=== PATIENT | male | born 1945 | race Caucasian/White ===

== ENCOUNTER 2016-11-05 16:44 | Inpatient (IN) | payer MEDICARE, OTHER ==
[~2016-11-05] VITALS: Ht 180.3 cm; Wt 77.0 kg
[2016-11-05] MEDS ORDERED: IPRATROPIUM (NEB) 0.5 MG/2.5 ML AMP NEB STA (16:46)
[2016-11-05] MEDS ORDERED: ALBUTEROL 0.083% (NEB) 2.5 MG/3 ML AMP NEB STA (16:46)
[2016-11-05] MEDS ORDERED: METHYLPREDNISOLONE 125 MG INJ IV STA (16:46)
[2016-11-05] MEDS ORDERED: AZITHROMYCIN 500MG/NS (PMX) 250 ML IVPB ONE (17:00)
[2016-11-05 17:26] LABS: BASOPHIL # 0.1 10^3/ul (0.0-0.1); BASOPHILS % 0.7 % (0.0-2.0); EOSINOPHILS # 0.2 10^3/ul (0.0-0.5); HEMATOCRIT 41.5 % (42.0-52.0); HEMOGLOBIN 13.2 g/dl (14.0-18.0); LYMPHOCYTES # 1.6 10^3/ul (0.8-2.9); LYMPHOCYTES % 21.9 % (15.0-51.0); MEAN CORPUSCULAR HEMOGLOBIN 29.6 pg (29.0-33.0); MEAN CORPUSCULAR HGB CONC 31.8 g/dl (32.0-37.0); MEAN PLATELET VOLUME 11.7 fl (7.4-10.4); MONOCYTE # 0.5 10^3/ul (0.3-0.9); MONOCYTES % 7.1 % (0.0-11.0); NEUTROPHIL # 5.1 10^3/ul (1.6-7.5); NEUTROPHILS % 67.9 % (39.0-77.0); PLATELET COUNT 161 10^3/UL (140-415); RED BLOOD COUNT 4.46 10^6/ul (4.70-6.10); RED CELL DISTRIBUTION WIDTH 12.9 % (11.5-14.5); WHITE BLOOD COUNT 7.4 10^3/ul (4.8-10.8)
--- NOTE | 2016-11-05 17:48 | RADRPT ---
PROCEDURE: Chest x-ray CLINICAL INDICATION: Asthma exacerbation TECHNIQUE: Chest single view COMPARISON: None FINDINGS: The heart is normal in size. The pulmonary vessels are normal in caliber. There is extensive hyper lucency in the right upper lung likely representing extensive bullous formation. Moderate biapical pleural and parenchymal scarring is seen. No acute infiltrates are identified. Costophrenic angles are sharp. The bony thorax is unremarkable. IMPRESSION: 1. Hyperlucency in the right upper lung likely reflecting large bullae/blebs.. 2. Bilateral apical pleural and parenchymal scarring and fibrosis. 3. No acute infiltrates or CHF RPTAT: HH .Donnie Jones MD, MD Date Time Electronically viewed and signed by .Donnie Jones MD, on 11/05/2016 17:47 .W/
[2016-11-05 17:52] LABS: ANION GAP 12 (8-16); BLOOD UREA NITROGEN 20 mg/dl (7-20); CALCIUM 9.2 mg/dl (8.4-10.2); CARBON DIOXIDE 32 mmol/L (21-31); CHLORIDE 101 mmol/L (97-110); CREATININE 0.74 mg/dl (0.61-1.24); GLUCOSE 118 mg/dl (70-220); POTASSIUM 3.7 mmol/L (3.5-5.1); SODIUM 141 mmol/L (135-144)
[2016-11-05 18:07] LABS: TROPONIN-I < 0.012 ng/ml (0.00-0.12)
--- NOTE | 2016-11-05 18:23 | ERA ---
ER Documentation Chief Complaint Date/Time DATE: 11/05/16 TIME: 18:20 Chief Complaint SOB H/O COPD HPI Patient is a 71-year-old male with COPD and hypertension who presents with shortness of breath. This shortness of breath started this morning and has worsened as the day has gone on. He is out of albuterol at home. He was 88% when picked up by paramedics. He was brought in by ambulance and was given albuterol. He denies fevers. He denies cough. Upon review of old medical records this is the patient's fourth visit to the ER since 2014. He says that his primary doctor is a Dr. Velásquez. ROS All systems reviewed and are negative except as per history of present illness. Medications Home Meds Unable to Obtain Active Prescriptions or Reported Meds Allergies Allergies: Coded Allergies: No Known Allergy (Unverified , 11/05/16) PMhx/Soc History of Surgery: No Anesthesia Reaction: No Hx Neurological Disorder: No Hx Respiratory Disorders: Yes (Asthma;COPD) Hx Cardiac Disorders: Yes (HTN) Hx Psychiatric Problems: No Hx Miscellaneous Medical Probl: Yes (Deviated Nasal Septum;Victor Manuel Ears HAVASUPAI; Chronic Indwelling Cath Usage) Hx Alcohol Use: No Hx Substance Use: No Hx Tobacco Use: Yes Smoking Status: Current every day smoker FmHx Family History: No diabetes Physical Exam Vitals Vital Signs Date Time Temp Pulse Resp B/P Pulse Ox O2 Delivery O2 Flow Rate FiO2 11/05/16 17:19 0 11/05/16 17:09 76 18 96 21 11/05/16 16:52 98.5 73 22 125/73 95 Physical Exam Const: Moderate distress secondary to shortness of breath Head: Atraumatic Eyes: Normal Conjunctiva ENT: Normal External Ears, Nose and Mouth. Neck: Full range of motion..~ No meningismus. Resp: Diffuse expiratory wheezing Cardio: Regular rate and rhythm, no murmurs Abd: Soft, non tender, non distended. Normal bowel sounds Skin: No petechiae or rashes Back: No midline or flank tenderness Ext: No cyanosis, or edema Neur: Awake and alert Psych: Normal Mood and Affect Result Diagram: 11/05/16 1715 11/05/16 1715 Results 24 hrs Laboratory Tests Test 11/05/16 17:15 White Blood Count 7.410^3/ul Red Blood Count 4.4610^6/ul Hemoglobin 13.2g/dl Hematocrit 41.5% Mean Corpuscular Volume 93.0fl Mean Corpuscular Hemoglobin 29.6pg Mean Corpuscular Hemoglobin Concent 31.8g/dl Red Cell Distribution Width 12.9% Platelet Count 41863^3/UL Mean Platelet Volume 11.7fl Neutrophils % 67.9% Lymphocytes % 21.9% Monocytes % 7.1% Eosinophils % 2.0% Basophils % 0.7% Nucleated Red Blood Cells % 0.0/100WBC Neutrophils # 5.110^3/ul Lymphocytes # 1.610^3/ul Monocytes # 0.510^3/ul Eosinophils # 0.210^3/ul Basophils # 0.110^3/ul Nucleated Red Blood Cells # 0.010^3/ul Sodium Level 141mmol/L Potassium Level 3.7mmol/L Chloride Level 101mmol/L Carbon Dioxide Level 32mmol/L Anion Gap 12 Blood Urea Nitrogen 20mg/dl Creatinine 0.74mg/dl Glucose Level 118mg/dl Calcium Level 9.2mg/dl Troponin I < 0.012ng/ml Current Medications Medications (Trade) Dose Ordered Sig/Carmelo Route PRN Reason Start Time Stop Time Status Last Admin Dose Admin Albuterol (Proventil 0.083% (Neb)) 5 mg ONCE STAT NEB 11/05/16 16:46 11/05/16 16:48 DC 11/05/16 17:07 Ipratropium [place] (Atrovent 0.02% (Neb)) 0.5 mg ONCE STAT NEB 11/05/16 16:46 11/05/16 16:48 DC 11/05/16 17:07 Methylprednisolone Sodium Succinate 125 mg 125 mg ONCE STAT IV 11/05/16 16:46 11/05/16 16:48 DC 11/05/16 17:04 Azithromycin (Zithromax 500mg/ NS (Pmx)) 250 ml @ 250 mls/hr ONCE ONCE IVPB 11/05/16 17:00 11/05/16 17:59 DC 11/05/16 17:04 Ondansetron HCl (Zofran Inj) 4 mg BRIDGE ORDER PRN IV NAUSEA AND/OR VOMITING 11/05/16 18:30 11/06/16 18:29 Acetaminophen (Tylenol Tab) 650 mg ER BRIDGE PRN PO MILD PAIN/FEVER 11/05/16 18:30 11/06/16 18:29 Procedures/MDM PROCEDURE: Chest x-ray CLINICAL INDICATION: Asthma exacerbation TECHNIQUE: Chest single view COMPARISON: None FINDINGS: The heart is normal in size. The pulmonary vessels are normal in caliber. There is extensive hyperlucency in the right upper lung likely representing extensive bullous formation. Moderate biapical pleural and parenchymal scarring is seen. No acute infiltrates are identified. Costophrenic angles are sharp. The bony thorax is unremarkable. IMPRESSION: 1. Hyperlucency in the right upper lung likely reflecting large bullae/blebs.. 2. Bilateral apical pleural and parenchymal scarring and fibrosis. 3. No acute infiltrates or CHF RPTAT: HH .Donnie Jones MD, MD Date Time Electronically viewed and signed by .Donnie Jones MD, MD on 11/05/2016 17:47 EKG read by me: Rate/Rhythm: Regular rate and rhythm at a normal rate Intervals: Normal Impression: No evidence of ischemia or arrhythmia Smoking Cessation Therapy: Pt. was lectured for greater than 3 minutes on the health risks of continued smoking and the benefits of cessation. Patient is a 71-year-old male with COPD who presents with acute COPD with hypoxia. He was 88% on room air at home and does not wear home oxygen. He has run out of albuterol. The patient will need admission given his age and comorbidities. He is continuing to smoke. The patient was given albuterol, Atrovent, Solu-Medrol, and Zithromax empirically. There is no pneumonia or pneumothorax. I doubt pulmonary embolism. I spoke with Dr. Finn from the panel team for admission as the patient has never been admitted before and his primary doctor does not have admitting privileges. Departure Diagnosis: Primary Impression: COPD exacerbation Additional Impressions: Shortness of breath Anemia Qualified Code: D64.9 - Anemia, unspecified type Condition: SLADE Sommers MD Nov 05, 2016 18:23
[2016-11-05] MEDS ORDERED: NACL 0.9% 3 ML SYG IV SCH (18:30)
[2016-11-05] MEDS ORDERED: HYDROCODONE/APAP (5/325) TAB PO PRN (18:30)
[2016-11-05] MEDS ORDERED: ONDANSETRON 4 MG INJ IV PRN (18:30)
[2016-11-05] MEDS ORDERED: NICOTINE POLACRILEX 2 MG GUM BU PRN (18:30)
[2016-11-05] MEDS ORDERED: DOCUSATE SODIUM 100 MG CAP PO PRN (18:30)
[2016-11-05] MEDS ORDERED: ACETAMINOPHEN 325 MG TAB PO PRN ×2 (18:30)
--- NOTE | 2016-11-05 18:34 | HP ---
Date/Time of Note Date/Time of Note DATE: 11/05/16 TIME: 18:31 Assessment/Plan VTE Prophylaxis VTE Prophylaxis Intervention: SCD's Lines/Catheters IV Catheter Type (from Nrs): Saline Lock Assessment/Plan Assessment/Plan 71 yo M with tobacco abuse here with SOB, suspect acute on chronic obstructive pulmonary disease, possibly from viral etio. Cannot r/o PE. PLAN start COPD exacerbation treatment with steroid burst, scheduled duonebs, ZPack viral swab and sputum culture if not improved in 1-2 days consider PE eval NRT rx'ed DVT prophx general diet HPI/ROS Admit Date/Time Admit Date/Time Hx of Present Illness 71 yo M with possible h/o COPD presents with 2 days of SOB and cough productive of white phlegm. No fevers or chest pain. Active tobacco use. PMH/Family/Social Social History Smoking Status: Current every day smoker Exam/Review of Systems Vital Signs Vitals Vital Signs Date Time Temp Pulse Resp B/P Pulse Ox O2 Delivery O2 Flow Rate FiO2 11/05/16 17:19 0 11/05/16 17:09 76 18 96 21 11/05/16 16:52 98.5 125/73 Exam Exam nad, sitting up in bed EOMI MMM edentulous poor air movement, no wheezing or crackles no mrg lungs clear no rashes Labs Result Diagram: 11/05/16 1715 11/05/16 1715 Procedures Procedures CXR no infiltrate, +bleb SATNAM GAMA MD Nov 05, 2016 18:34
[2016-11-05] MEDS ORDERED: NACL 3% FOR INHALATION 15 ML NEBU NEB ONE (20:00)
[2016-11-05] MEDS: ALBUTEROL/IPRATROPIUM (NEB) 3 ML AMP NEB SCH (21:30)
[2016-11-06] MEDS: ALBUTEROL/IPRATROPIUM (NEB) 3 ML AMP NEB SCH ×6 (03:30→21:53)
[2016-11-06 03:40] VITALS: TEMP 97.8
[2016-11-06] MEDS ORDERED: NICOTINE POLACRILEX 2 MG GUM BU PRN (08:30)
[2016-11-06] MEDS: predniSONE 20 MG TAB PO SCH (09:21)
[2016-11-06] MEDS: AZITHROMYCIN 250 MG TAB PO SCH (09:23)
[2016-11-06] MEDS: ENOXAPARIN 40 MG/0.4 ML SYG SC SCH (09:23)
[2016-11-06 12:21] LABS: ADD UMIC YES; UR ASCORBIC ACID NEGATIVE (NEGATIVE); UR BILIRUBIN (Dip) NEGATIVE (NEGATIVE); UR BLOOD (Dip) NEGATIVE (NEGATIVE); UR CLARITY CLOUDY (CLEAR); UR COLOR YELLOW (YELLOW); UR GLUCOSE (Dip) 3+ mg/dL (NEGATIVE); UR KETONES (Dip) NEGATIVE (NEGATIVE); UR LEUKOCYTE ESTERASE (Dip) 2+ Leu/ul (NEGATIVE); UR MUCUS FEW /HPF (NONE SEEN); UR NITRITE (Dip) POSITIVE (NEGATIVE); UR RBC 9 /HPF (0-5); UR SPECIFIC GRAVITY (Dip) 1.024 (1.003-1.030); UR TOTAL PROTEIN (Dip) 1+ mg/dl (NEGATIVE); UR UROBILINOGEN (Dip) NEGATIVE (NEGATIVE); UR WBC CLUMPS MANY /HPF (NONE SEEN)
[2016-11-06 12:27] LABS: UR BACTERIA MANY /HPF (NONE SEEN); UR BUDDING YEAST RARE /HPF (NONE SEEN)
[2016-11-06 15:10] VITALS: PULSE 72
[2016-11-06 16:59] VITALS: Ht 180.3 cm; Wt 77.0 kg
[2016-11-06 18:59] VITALS: BP 108/58; RESP 18
[2016-11-06 21:59] VITALS: BP 122/58; RESP 18
[2016-11-07] MEDS: ALBUTEROL/IPRATROPIUM (NEB) 3 ML AMP NEB SCH ×4 (01:20→13:22)
[2016-11-07 08:13] VITALS: BP 96/54; RESP 16
[2016-11-07] MEDS: predniSONE 20 MG TAB PO SCH (09:34)
[2016-11-07] MEDS: AZITHROMYCIN 250 MG TAB PO SCH (09:34)
[2016-11-07] MEDS: ENOXAPARIN 40 MG/0.4 ML SYG SC SCH (09:34)
[2016-11-07] MEDS ORDERED: [UNRECOGNIZED DRUG - CODE] BU (11:11)
[2016-11-07] MEDS ORDERED: AZIT250T6 PO (11:11)
[2016-11-07] MEDS ORDERED: PRED20TA PO (11:11)
[2016-11-07] MEDS ORDERED: IPRA4AER INHALATION (11:11)
--- NOTE | 2016-11-07 11:14 | PDOCDIS ---
Discharge Instructions DIAGNOSIS Discharge Diagnosis shortness of breath CONDITION Patient Condition: Good HOME CARE INSTRUCTIONS: Special Diet: Regular ACTIVITY: Activity Restrictions: Slowly Increase Activity FOLLOW UP/APPOINTMENTS Follow-up Plan Follow up with your regular doctor this week regarding your breathing. You should be referred for formal breathing tests/pulmonary function testing to see if you need to be on breathing medicine daily for your likely emphysema/COPD/ chronic obstructive pulmonary disease. STOP SMOKING SATNAM GAMA MD Nov 07, 2016 11:14
--- NOTE | 2016-11-07 11:17 | DS ---
Date/Time of Note Date/Time of Note DATE: 11/07/16 TIME: 11:15 Discharge Summary Admission/Discharge Info Admit Date/Time Nov 05, 2016 at 18:04 Discharge Date/Time Discharge Diagnosis shortness of breath Patient Condition: Good Procedures CXR 6.: +blebs, no infiltrate Hx of Present Illness 71 yo M with possible h/o COPD presents with 2 days of SOB and cough productive of white phlegm. No fevers or chest pain. Active tobacco use. Hospital Course Pt started on Zpack, prednisone burst, Duonebs. Breathing retuned to baseline within 48 hours and pt did not require supplemental O2 at time of discharge. Pt advised to f/u with PCP for outpatient PFTs and COPD optimization Home Meds Active Scripts Albuterol/Ipratropium* (Combivent Respimat*) 20-100 Mcg/Inh - 4 Gm Aer.w.adap, 1 PUFF INHALATION QID for WHEEZING, #1 INHALER Prov:SATNAM GAMA MD 11/07/16 Prednisone* (Prednisone*) 20 Mg Tab, 40 MG PO DAILY for 3 Days, #3 TAB Prov:SATNAM GAMA MD 11/07/16 Nicotine Polacrilex (Nicorette) 2 Mg Gum, 2 MG BU Q2H Y for NICOTINE WITHDRAWAL for 7 Days, #28 Prov:SATNAM GAMA MD 11/07/16 Azithromycin* (Azithromycin*) 250 Mg Tablet, 250 MG PO DAILY for 3 Days, #3 TAB Prov:SATNAM GAMA MD 11/07/16 Follow-up Plan PCP within 7 days for further eval and PFT referral Primary Care Provider Not On Staff Doctor SATNAM GAMA MD Nov 07, 2016 11:16
== END 2016-11-07 15:03 | disposition home or self-care (01) | DRG 192 ==
LOC: E/R 16:44 → PP2 18:04 → FTE 11-06 15:30
PROVIDERS: ADMIT Internal Medicine; ATTEND Internal Medicine
DX: J44.1 Chronic obstructive pulmonary disease with (acute) exacerbation (principal); D64.9 Anemia, unspecified; F17.200 Nicotine dependence, unspecified, uncomplicated
CPT/HCPCS: 71010; 80048; 81001; 84484; 85025; 87040; 87070; 87086; 93005; 94640; 94664; 96372; 96374; 96375; J0456; J1650; J2930; J7512

== ENCOUNTER 2016-12-09 19:13 | Emergency (ER) | payer MEDICARE, OTHER ==
[~2016-12-09] VITALS: Wt 70.0 kg
[~2016-12-09 19:13] MED LIST: AZIT250T6 PO; IPRA4AER INHALATION; PRED20TA PO; [UNRECOGNIZED DRUG - CODE] BU
--- NOTE | 2016-12-09 22:13 | ERD ---
ER Documentation Chief Complaint Date/Time DATE: 12/09/16 TIME: 22:09 Chief Complaint Urine catheter replacement HPI This 71-year-old male patient presents to emergency department for a catheter change pt reports that his current F/C is leaking urine around the Hernandez and is painful . pt states the this catheter was placed 2 weeks ago at [facility]. pt pt denies back pain fever or chills ROS All systems reviewed and are negative except as per history of present illness. Medications Home Meds Active Scripts Ciprofloxacin Hcl* (Ciprofloxacin Hcl*) 500 Mg Tablet, 500 MG PO BID for 7 Days , TAB Prov:ADOLFO,JACKIE 12/10/16 Albuterol/Ipratropium* (Combivent Respimat*) 20-100 Mcg/Inh - 4 Gm Aer.w.adap, 1 PUFF INHALATION QID for WHEEZING, #1 INHALER Prov:SATNAM GAMA MD 11/07/16 Prednisone* (Prednisone*) 20 Mg Tab, 40 MG PO DAILY for 3 Days, #3 TAB Prov:SATNAM GAMA MD 11/07/16 Nicotine Polacrilex (Nicorette) 2 Mg Gum, 2 MG BU Q2H Y for NICOTINE WITHDRAWAL for 7 Days, #28 Prov:SATNAM GAMA MD 11/07/16 Azithromycin* (Azithromycin*) 250 Mg Tablet, 250 MG PO DAILY for 3 Days, #3 TAB Prov:SATNAM GAMA MD 11/07/16 Allergies Allergies: Coded Allergies: No Known Allergy (Unverified , 11/05/16) PMhx/Soc History of Surgery: No Anesthesia Reaction: No Hx Neurological Disorder: No Hx Respiratory Disorders: Yes (asthma, copd) Hx Cardiac Disorders: Yes (HTN) Hx Psychiatric Problems: No Hx Miscellaneous Medical Probl: No Hx Alcohol Use: No Hx Substance Use: No Hx Tobacco Use: Yes Physical Exam Vitals Vital Signs Date Time Temp Pulse Resp B/P Pulse Ox O2 Delivery O2 Flow Rate FiO2 12/10/16 01:58 97.7 72 16 151/69 96 Room Air 12/09/16 19:35 98.5 63 24 120/53 95 Physical Exam Const: Thin, no acute distress Head: Atraumatic Eyes: Normal Conjunctiva PERRLA, EOM ENT: Normal External Ears, Nose and Mouth. Neck: Full range of motion..~ No meningismus. Resp: Respirations even and unlabored no respiratory distress Cardio: Abd: Soft, non tender, non distended. Normal bowel sounds no CVA tenderness Skin: Back: Ext: Neur: Awake and alert, garbled speech at times history of CVA Psych: Normal Mood and Affect Results 24 hrs Laboratory Tests Test 12/10/16 00:58 Bedside Urine pH (LAB) 5.5 Bedside Urine Protein (LAB) 2+ Bedside Urine Glucose (UA) Negative Bedside Urine Ketones (LAB) Negative Bedside Urine Blood 2+ Bedside Urine Nitrite (LAB) Positive Bedside Urine Leukocyte Esterase (L 3+ Urinalysis positive for leukocytosis, nitrates, microscopic hematuria. Procedures/MDM This 71-year-old male patient presents to emergency department for a leaking catheter. Patient has permanent catheter placement reports he had his catheter changed at another hospital, [facility], 2 weeks ago states that he has been uncomfortable ever since but now he is leaking urine around catheter. Patient has garbled slurred speech at times, hard of hearing and is difficult to understand history of CVA. Low suspicion for pyelonephritis, suspected urinary tract infection, catheter change per protocol by registered nurse, urine sent for urinalysis and culture and sensitivity. New catheter was placed in usual fashion, urine analysis is positive for leukocytosis nitrates and microscopic hematuria suggestive of an infection. Patient will be treated with Cipro 500 mg twice daily 7 days and instructed to follow-up with primary care physician for post antibiotic urinalysis. Return to emergency department for back pain, fever, chills. I feel the patient is stable for discharge at this time with outpatient management by primary care physician as outlined above. I have discussed results, examination findings, the treatment plan with the patient and family present prior to discharge. Indications for emergent reevaluation, side effects of medication were also discussed. All questions were answered. Patient verbalizes understanding and agrees with plan of care. Departure Diagnosis: Primary Impression: UTI (urinary tract infection) Urinary tract infection type: catheter-associated UTI Indwelling urinary catheter type: indwelling urethral catheter Encounter type: initial encounter Qualified Code: T83.511A - Urinary tract infection associated with indwelling urethral catheter, initial encounter Condition: Fair Patient Instructions: Understanding Urinary Tract Infections (UTIs) Additional Instructions: Thank you for for coming to [facility] for your care today. Please ask your nurse or provider if you have questions about your care today and do not leave until all your questions have been answered. Please use any medications given as directed and follow-up with your doctor (or the doctor you were referred to) in the next 2-3 days. If you do not have a primary care doctor you may [place] [facility] [place] You may also use motrin and tylenol as needed for fever and/or pain unless instructed otherwise by your provider or nurse. Indications for more urgent follow-up have been discussed, but you may return to the Emergency Department at ANY time for any worrisome or worsening symptoms. If you have abdominal pain, please know that no test or exam you received is perfect and you should follow up within 8 hours for continued pain. If you had any imaging studies today, such as an X-Ray or CT Scan, these studies will be reviewed later by a radiologist. You will be called if there are important findings that were not identified today, so make sure the contact information you provided at registration is correct. If you received any narcotic pain control medicine today, such as Vicodin, Morphine or Dilaudid, your coordination and judgment may be affected for a number of hours. Please do not drive or operate heavy machinery, and you may want someone to assist you at home. If you were given a prescription for narcotic medication, be aware that it is very addictive- use sparingly and only if necessary. JACKIE MATA Dec 09, 2016 22:13
[2016-12-10 00:52] LABS: URINE BLOOD (Dip) POC 2+ (NEGATIVE)
[2016-12-10] MEDS ORDERED: CIPR500T4 PO (01:52)
[2016-12-10 01:58] VITALS: BP 151/69; PULSE 72; RESP 16; TEMP 97.7
== END 2016-12-10 02:00 | disposition home or self-care (01) ==
LOC: E/R 19:13 → FTE 12-10 02:00
DX: T83.511A Infection and inflammatory reaction due to indwelling urethral catheter, initial encounter (principal); J45.909 Unspecified asthma, uncomplicated; J44.9 Chronic obstructive pulmonary disease, unspecified; I10 Essential (primary) hypertension; Y73.8 Miscellaneous gastroenterology and urology devices associated with adverse incidents, not elsewhere classified; Z87.891 Personal history of nicotine dependence
CPT/HCPCS: 81003